=== PATIENT | male | born 1990 | race Caucasian/White ===

== ENCOUNTER 2020-06-23 12:55 | Emergency (ER) | payer MEDICAID, OTHER ==
[~2020-06-23] VITALS: Ht 175.3 cm; Wt 58.4 kg
[2020-06-23 13:03] VITALS: BP 132/67
[2020-06-23] MEDS ORDERED: DIPH,PERTUSS(ACELL),TET VAC/PF 0.5 ML IM-VACC ONE ×2 (13:53→14:00)
[2020-06-23] MEDS ORDERED: LIDOCAINE-MPF 1%, 5ML ONE ×2 (13:53→14:19)
[2020-06-23] MEDS ORDERED: LIDOCAINE-MPF 1%, 5ML INFIL ONE (14:00)
== END 2020-06-23 15:32 | disposition home or self-care (01) ==
LOC: ED 15:09
DX: S51.812A Laceration without foreign body of left forearm, initial encounter (principal); F17.200 Nicotine dependence, unspecified, uncomplicated; Z88.0 Allergy status to penicillin; Z88.2 Allergy status to sulfonamides; W26.8XXA Contact with other sharp object(s), not elsewhere classified, initial encounter; Y93.89 Activity, other specified; Y92.009 Unspecified place in unspecified non-institutional (private) residence as the place of occurrence of the external cause; Y99.8 Other external cause status
CPT/HCPCS: 12032; 90471; 90715; 99283; 99284

== ENCOUNTER 2020-07-03 13:02 | Emergency (ER) | payer MEDICAID ==
[~2020-07-03] VITALS: Ht 175.3 cm; Wt 56.2 kg
[2020-07-03 13:23] VITALS: BP 141/82
--- NOTE | 2020-07-03 13:39 | NUR ---
Sutures removed in triage.
== END 2020-07-03 13:40 | disposition home or self-care (01) ==
LOC: ED 13:36
DX: S51.812D Laceration without foreign body of left forearm, subsequent encounter (principal); X58.XXXD Exposure to other specified factors, subsequent encounter
CPT/HCPCS: 99282